=== PATIENT | male | born 1975 | race Hispanic/Latino ===

== ENCOUNTER 2016-09-23 02:41 | Emergency (ER) | payer OTHER ==
[2016-09-23 02:43] VITALS: BMI 36.2
[2016-09-23 02:48] VITALS: BP 142/83; PULSE 85; RESP 18; TEMP 97.6; O2SAT 98
--- NOTE | 2016-09-23 03:40 | ED PDOC ---
Arrival/HPI - General Chief Complaint: Eye Problem Time Seen by Provider: 09/23/16 03:37 Historian: Patient - History of Present Illness Narrative History of Present Illness (Text): 09/23/16 03:48 Prabha Stoner is a 41 year old male who presents to the emergency department complaining of right eye pain, tearing and irritation since yesterday. States that hot liquid splattered into the right eye 3 days ago. Informs of foreign body sensation behind the eyelid and reports of difficulty falling asleep due to irritation while closing eyelids. Patient wears contact lenses, but has not worn them since. Denies any vision changes. Denies fever, chills, or any other complaints at this time. Time/Duration: Other (yesterday ) Symptom Course: Worsening Activities at Onset: Significant Past Medical History - Provider Review Nursing Documentation Reviewed: Yes - Infectious Disease Hx of Infectious Diseases: None - Psychiatric Hx Substance Use: No - Surgical History Other/Comment: b/l knee sx - Anesthesia Hx Anesthesia: No Hx Anesthesia Reactions: No Hx Malignant Hyperthermia: No Family/Social History - Physician Review Nursing Documentation Reviewed: Yes Family/Social History: No Known Family HX Smoking Status: Current Some Days Smoker Hx Alcohol Use: Yes Frequency of alcohol use: Socially Hx Substance Use: No Allergies/Home Meds Allergies/Adverse Reactions: Allergies No Known Allergies Allergy (Verified 09/23/16 02:43) Physical Exam - Physical Exam Narrative Physical Exam (Text): - Review of Systems Constitutional: Normal. absent: Fatigue, Weight Change, Fevers Eyes: Right eye pain, tearing, and irritation. ENT: Normal Respiratory: Normal absent: SOB, Cough, Sputum Cardiovascular: Normal absent: Chest pain, Palpitations, Syncope Gastrointestinal: Normal absent: Abdominal pain, Diarrhea, Nausea, Vomiting Genitourinary: Normal. absent: Dysuria, Frequency, Hematuria Musculoskeletal: Normal. absent: Arthralgias, Back Pain, Neck Pain Skin: Normal Neurological: Normal absent: Focal Weakness Endocrine: Normal Hemo/Lymphatic: Normal Psychiatric: Normal - Physical exam Patient appears age appropriate, speaking full sentences without difficulty - Systems Exam Head: Present: Atraumatic, Normocephalic Pupils: Present: PERRL Extraocular Muscles: Present: EOMI Eye: Fluoro staining. No corneal abrasion. EOMI. No foreign body. Upper and lower eyelids inverted, no abnormalities or FBs seen Mouth: Present: Moist Mucous Membranes Neck: Present: Normal Range of Motion. No: MIDLINE TENDERNESS, Paraspinal Tenderness Respiratory/Chest: Present: Clear to Auscultation, Good Air Exchange. No: Respiratory Distress, Accessory Muscle Use, Tachypneic Cardiovascular: Present: Regular Rate and Rhythm, Normal S1, S2, Peripheral Pulses Present. No: Murmurs Abdomen: Present: Normal Bowel Sounds, No: Tenderness, Peritoneal Signs, Rebound, Guarding, Distention Back: Present: Normal Inspection. No: Midline Tenderness, Paraspinal Tenderness Upper Extremity: Present: Normal Inspection. No: Cyanosis, Edema Lower Extremity: Present: Normal Inspection. No: Edema Neurological: Present: GCS=15, Speech Normal, cranial nerves II through XII fully intact with no cerebellar abnormality, neuro-sensory fully intact. No focal neurological deficits. Skin: Present: Warm, Dry, Normal Color. No: Rashes Lymphatic: Present: OX3, NI, NC Psychiatric: Present: Alert, Oriented x 3, Normal Insight, Normal Concentration Vital Signs Reviewed: Yes Vital Signs Temp Pulse Resp BP Pulse Ox 09/23/16 02:43 97.6 F 85 18 142/83 98 Temperature: Afebrile Blood Pressure: Normal Pulse: Regular Respiratory Rate: Normal Appearance: Positive for: Well-Appearing, Non-Toxic, Comfortable Pain Distress: None Mental Status: Positive for: Alert and Oriented X 3 Medical Decision Making ED Course and Treatment: 09/23/16 03:59 Impression: A 41 year old male who presents to the emergency department complaining of right eye pain and irritation since yesterday. On PE, there is no corneal abrasion, no foreign body. Upper and lower eyelid inverted, no abnormalities seen. Patient is stable for discharge. Advised to present to emergency department for worsening symptoms and follow up with environmental engineering manager. Discharged home with erythromycin cream. - Scribe Statement The provider has reviewed the documentation as recorded by the Joshua Hurst Provider Attestation: All medical record entries made by the Joshua were at my direction and personally dictated by me. I have reviewed the chart and agree that the record accurately reflects my personal performance of the history, physical exam, medical decision making, and the department course for this patient. I have also personally directed, reviewed, and agree with the discharge instructions and disposition. Disposition/Present on Arrival - Present on Arrival Any Indicators Present on Arrival: No History of DVT/PE: No History of Uncontrolled Diabetes: No Urinary Catheter: No History of Decub. Ulcer: No History Surgical Site Infection Following: None - Disposition Have Diagnosis and Disposition been Completed?: Yes Diagnosis: Eye injury Disposition: HOME/ ROUTINE Disposition Time: 03:40 Patient Plan: Discharge Condition: GOOD Discharge Instructions (ExitCare): [facility] (ED) Additional Instructions: PLEASE RETURN TO THE EMERGENCY DEPARTMENT FOR NEW OR WORSENING SYMPTOMS. RETURN RIGHT AWAY IF YOU CANNOT FOLLOW UP WITH YOUR PRIMARY CARE DOCTOR, CLINIC, OR SPECIALIST IN 1-2 DAYS. Prescriptions: Erythromycin 0.5% [Erythromycin] 1 applic OD QID #1 tube Referrals: Matty Carrizales [Staff Provider] - Follow up with primary Forms: WORK NOTE
== END 2016-09-23 04:00 | disposition home or self-care (01) ==
LOC: ED 02:41
DX: S05.91XA Unspecified injury of right eye and orbit, initial encounter (principal); X58.XXXA Exposure to other specified factors, initial encounter; Y93.G3 Activity, cooking and baking; Y92.89 Other specified places as the place of occurrence of the external cause